=== PATIENT | male | born 1985 ===

== ENCOUNTER 2024-01-02 09:30 | Inpatient (IN) | payer OTHER ==
[~2024-01-02] VITALS: Ht 165.1 cm; Wt 70.3 kg
[2024-01-02 11:44] LABS: PH,URINE 5.5 (5.0-8.0); URINE APPEARANCE Clear; URINE BILIRRUBIN Negative (NEGATIVE); URINE BLOOD Negative; URINE COLOR Yellow; URINE GLUCOSE Negative (NEGATIVE); URINE KETONE Negative (NEGATIVE); URINE LEUKOCYTE Negative; URINE NITRATE Negative; URINE PROTEIN Negative (NEGATIVE); URINE UROBILINOGEN 0.2 E.U./dl
[2024-01-02 11:46] LABS: HEMOGLOBIN 15.4 g/dL (13-16.00); MEAN CELL VOLUME 90.2 fL (80.0-100.00); MEAN CORPUSCULAR HEMOGLOBIN 30.9 pg (27.00-32.0); MEAN CORPUSCULAR HGB CONC 34.3 g/dl (32.0-36.0); PLATELET COUNT 378 K/uL (150-450); RED BLOOD COUNT 4.99 M/uL (4.00-6.00); RED CELL DISTRIBUTION WIDTH 13.6 % (11.5-14.5)
[2024-01-02 11:48] LABS: URINE BACTERIA 6.2 uL (0.0-1933)
[2024-01-02 11:56] LABS: INR 1.03; PARTIAL THROMBOPLASTIN TIME 27.6 SECONDS (22.0-34.0); PROTHROMBIN TIME 11.2 SECONDS (9.0-11.5)
[2024-01-02 12:05] LABS: URINE EPITHELIAL CELLS 0.3 uL (0.0-38.8); URINE WBC 0.4 uL (0.0-23.2)
[2024-01-02 12:33] LABS: ALBUMIN 3.9 gm/dL (3.4-5.0); BILIRUBIN TOTAL 0.65 mg/dL (0.3-1.2); CALCIUM 9.4 mg/dL (8.5-10.1); CREATININE SERUM 0.74 mg/dL (0.70-1.30); GFR 119.01; GLOBULINA 3.3 G/DL (2.4-3.5); POTASSIUM 4.2 mEq/L (3.5-5.1); TOTAL PROTEIN 7.2 gm/dL (6.4-8.2)
[2024-01-08] MEDS ORDERED: LIDOCAINE HCL 1%/EPINEPHRINE 20ML VIAL IJ ONE (09:00)
[2024-01-08] MEDS ORDERED: CEFOXITIN SODIUM 2,000 MG in 0.9 % SODIUM CHLORIDE 100 ML IV ONE (09:00)
[2024-01-08] MEDS ORDERED: BUPIVACAINE HCL 30 ML VIAL IJ ONE (09:00)
[2024-01-08] MEDS ORDERED: ACETAMINOPHEN 500 MG GEL..CAP PO SCH (09:41)
[2024-01-08] MEDS ORDERED: ENOXAPARIN SODIUM 40 MG/0.4 ML SYRINGE SUBCUTANEO SCH (09:42)
[2024-01-08] MEDS ORDERED: MORPHINE SULFATE 4 MG/ML CARTRIDGE IV PRN (09:45)
[2024-01-08] MEDS ORDERED: SUGAMMADEX SODIUM 200 MG/2 ML VIAL IV ONE (10:00)
[2024-01-08] MEDS ORDERED: MORPHINE SULFATE 4 MG/ML VIAL IV ONE ×2 (10:15→11:00)
[2024-01-08 17:30] VITALS: BP 126/74; O2SAT 98
[2024-01-08] MEDS ORDERED: METRONIDAZOLE/SODIUM CHLORIDE 500 MG/100 ML PIGGYBACK IV SCH (21:00)
[2024-01-09 00:35] VITALS: BP 110/77; O2SAT 100
[2024-01-09] MEDS ORDERED: CEFTRIAXONE SODIUM 2,000 MG VIAL IV SCH (09:00)
[2024-01-09 09:39] VITALS: BP 114/65; O2SAT 99
[2024-01-09 17:06] VITALS: BP 148/67; O2SAT 98
[2024-01-09 23:30] VITALS: BP 114/71; O2SAT 97
[2024-01-10 08:00] VITALS: BP 107/70; O2SAT 97
== END 2024-01-10 12:13 | disposition home or self-care (01) | DRG 331 ==
LOC: SURH 01-08 05:15 → O/R 01-08 05:15 → SURH 01-08 09:30
PROVIDERS: ADMIT Surgery; ATTEND Surgery
PROC: 0DTF4ZZ Resection of Right Large Intestine, Percutaneous Endoscopic Approach (ICD-10-PCS; principal; 2024-01-08 11:15)
DX: K36 Other appendicitis (principal); D12.1 Benign neoplasm of appendix; R59.0 Localized enlarged lymph nodes